=== PATIENT | female | born 1990 | race African-American/Black ===

== ENCOUNTER 2018-05-12 02:31 | Emergency (ER) | payer MEDICAID ==
[~2018-05-12] VITALS: Ht 160 cm; Wt 78.1 kg
[2018-05-12] MEDS ORDERED: DEXAMETHASONE 10 MG/ML VIAL IV ONE (05:15)
[2018-05-12] MEDS ORDERED: KETOROLAC 30MG/ML VIAL IM ONE (05:15)
[2018-05-12] MEDS ORDERED: PENICILLIN G BENZATHINE 1,200,000 UNITS/2ML SYR IM ONE ×2 (06:30)
[2018-05-12 06:36] VITALS: BP 115/75
== END 2018-05-12 07:05 | disposition home or self-care (01) ==
LOC: ER 02:31
DX: J02.9 Acute pharyngitis, unspecified (principal); Z88.5 Allergy status to narcotic agent
CPT/HCPCS: 81025; 87070; 87430; 96372; 96374; 99283; J0561; J1100; J1885; Z7610

== ENCOUNTER 2018-05-12 23:39 | Emergency (ER) | payer MEDICAID ==
[~2018-05-12] VITALS: Ht 160 cm; Wt 79.0 kg
[2018-05-13] MEDS ORDERED: VISCOUS LIDOCAINE 2% 15 ML UDC MM STA (06:21)
[2018-05-13] MEDS ORDERED: HYDROCODONE/ACETAMINOPHEN 5/325MG TABLET PO ONE (06:30)
[2018-05-13 07:10] VITALS: BP 119/75
== END 2018-05-13 08:20 | disposition home or self-care (01) ==
LOC: ER 23:39
DX: J02.0 Streptococcal pharyngitis (principal); Z88.5 Allergy status to narcotic agent
CPT/HCPCS: 99283; Z7610